=== PATIENT | female | born 1995 | race Caucasian/White ===

== ENCOUNTER 2019-01-07 19:46 | Emergency (ER) | payer OTHER ==
[~2019-01-07 19:46] MED LIST: RANITIDINE 50 MG/2 ML VIAL ONE; methylPREDNISolone SOD SUCC 125 MG/2 ML VIAL ONE
[2019-01-07] MEDS ORDERED: RANITIDINE 50 MG/2 ML VIAL IVP ONE (19:50)
[2019-01-07] MEDS ORDERED: methylPREDNISolone SOD SUCC 125 MG/2 ML VIAL IVP ONE (19:50)
[2019-01-07] MEDS ORDERED: NS 500 ML IV ONE (19:50)
[2019-01-07] MEDS ORDERED: EPINEPHrine 1 MG/ML INJ IM ONE (19:50)
--- NOTE | 2019-01-07 20:03 | EDPHY ---
H & P Time Seen by Provider: 01/07/19 19:50 HPI/ROS: HPI Allergic reaction. 23-year-old female by private vehicle with her boyfriend. 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 She was eating at a salad restaurant. She thinks that the salad had some Hom[place] in it. She started feeling a sensation of fullness in her throat involving her tonsil and her uvula. She also reports she broke out in hives. She took 50 mg of oral Benadryl and took 1 dose 0.3 mg IM epinephrine in the right thigh. She started feeling better about a half an hour after that she started feeling her symptoms coming back. She took an additional 0.3 mg of IM epinephrine in the right thigh. She presents to the emergency department now complaining of feeling anxious and shaky but somewhat better. ROS: Constitutional: No fever, no chills. As above. Eyes: No discharge. No changes in vision. ENT: No sore throat. No nasal congestion or rhinorrhea. As above. Respiratory: No cough. No shortness of breath. Cardiac: No chest pain, no palpitations. Gastrointestinal: No abdominal pain, no vomiting, no diarrhea. Genitourinary: No hematuria. No dysuria or increased frequency with urination. Musculoskeletal: No back pain. No neck pain. As above. Skin: As above. Neurological: No headache. No focal weakness or altered sensation. Past medical history: Anaphylaxis. Social history: Nonsmoker. No alcohol. Here with her boyfriend. Physical Exam: General Appearance: Alert, anxious but not in distress. This patient is responding to questions appropriately and in full sentences. This patient appears well-hydrated and well-nourished. Eyes: Pupils equal and round no pallor or injection. No lid edema, erythema or injection. ENT, Mouth: Mucous membranes are moist. The pharyngeal tissues are unremarkable. No significant edema or swelling. No asymmetry suggestive of abscess. No erythema or exudates. No voice changes. No stridor on auscultation of her neck. Respiratory: There are no retractions, lungs are clear to auscultation with good air movement bilaterally. No tachypnea. Cardiovascular: Regular rate and rhythm. Borderline tachycardia. No murmur. Gastrointestinal: Abdomen is soft and nontender, no masses, bowel sounds normal. No focal tenderness at McBurney's point. No Gill sign. Neurological: Motor sensory function is grossly intact. Cranial nerves are normal. Gait is normal. Skin: Warm and dry, diffuse, erythematous, maculopapular blanching rash over the upper chest and shoulders and to some extent the extremity. This is improving according to the patient. No petechiae. Musculoskeletal: Neck is supple and nontender. Extremities are symmetrical. All joints range without pain or impingement. Psychiatric: No agitation. No depression. Database: EKG: Imaging: Procedures: Emergency department course: Triage vital signs reviewed. She is mildly tachycardic. She is hypertensive. Afebrile. IV was established. She will be given 125 mg of IV Solu-Medrol, 25 mg of IV Benadryl and 50 mg of IV ranitidine. She was placed on a java application engineer. Plan for observation in the emergency department. 9:25 p.m., the patient was re-evaluated, resting comfortably at this time. Vital signs reviewed and are now normal. She states that she feels completely asymptomatic. Repeat pharyngeal exam is normal. No voice changes. No stridor on auscultation of her neck. Her lungs are clear on auscultation bilaterally. She feels comfortable going home with her boyfriend and I feel she is safe for discharge. Follow-up and return to emergency department precautions reviewed with her. All of her questions were answered. She was discharged from the emergency department in good condition with her boyfriend. Differential Diagnosis: The differential diagnosis on this patient includes but is not limited to allergic reaction. Anaphylactoid reaction, anaphylactic shock unlikely. This represents a partial list of diagnoses considered. These considerations are based on history, physical exam, past history, reassessment and diagnostic testing. Smoking Status: Never smoked Constitutional: Initial Vital Signs Temperature (C) 37.2 C 01/07/19 19:46 Heart Rate 115 H 01/07/19 19:46 Respiratory Rate 20 01/07/19 19:46 Blood Pressure 161/98 H 01/07/19 19:46 O2 Sat (%) 100 01/07/19 19:46 O2 Delivery Mode Room Air Allergies/Adverse Reactions: tree nut Allergy (Verified 01/07/19 19:55) Home Medications: Medication Instructions Recorded Epipen 0.3 MG 01/07/19 predniSONE [prednisone 20mg (RX)] 60 mg PO DAILY #9 tab 01/07/19 Medical Decision Making - Data Points Medications Given: Discontinued Medications Diphenhydramine HCl (Benadryl Injection) 50 mg IVP EDNOW ONE Stop: 01/07/19 19:51 Last Admin: 01/07/19 19:57 Dose: 50 mg Epinephrine HCl (Epinephrine) 0.3 mg IM EDNOW ONE Stop: 01/07/19 19:51 Last Admin: 01/07/19 19:56 Dose: Not Given Sodium Chloride (Ns) 500 mls @ 0 mls/hr IV ONCE ONE; Wide Open PRN Reason: Protocol Stop: 01/07/19 19:51 Last Admin: 01/07/19 19:57 Dose: 500 mls Methylprednisolone Sodium Succinate (Solu-Medrol) 125 mg IVP EDNOW ONE Stop: 01/07/19 19:51 Last Admin: 01/07/19 19:57 Dose: 125 mg Ranitidine HCl (Zantac) 50 mg IVP EDNOW ONE Stop: 01/07/19 19:51 Last Admin: 01/07/19 19:57 Dose: 50 mg Departure - Departure Disposition: Home, Routine, Self-Care Clinical Impression: Allergic reaction Condition: Good Instructions: General Allergic Reaction (ED) Additional Instructions: Read and follow provided instructions. Follow-up with your primary care physician tomorrow for re-evaluation as needed. Take medication as prescribed. Return to the emergency department for worsening symptoms, any sensation of swelling in your throat, difficulty swallowing, shortness of breath or other serious concerns. Referrals: NONE *PRIMARY CARE P,. [Primary Care Provider] - As per Instructions Prescriptions: predniSONE [prednisone 20mg (RX)] 60 mg PO DAILY #9 tab
[2019-01-07 21:41] VITALS: BP 104/61
== END 2019-01-07 21:39 | disposition home or self-care (01) ==
DX: T78.40XA Allergy, unspecified, initial encounter (principal); E86.9 Volume depletion, unspecified
CPT/HCPCS: 96374; J1200; J2780; J2930